=== PATIENT | male | born 1975 | race Hispanic/Latino ===

== ENCOUNTER → 2025-07-12 | Outpatient (CLI) | payer OTHER ==
--- NOTE | 2025-07-13 10:53 | HMCIMG ---
EXAM: CT Cardiac calcium scoring. CLINICAL HISTORY: CAD screening. TECHNIQUE: Thin collimated axial CT cardiac images were obtained. A CT scan is done according to ALARA (As Low As Reasonably Achievable). CONTRAST: None. COMPARISON: None provided. FINDINGS: Calcium Score: VESSEL Number of lesions Volume mm3 Equi. Mass/mg Calcium score LM 0 00.00 00.00 00.00 LAD 3 31.1 --.-- 45.7 LCX 0 00.00 00.00 00.00 RCA 0 00.00 00.00 00.00 Total 3 31.1 --.-- 45.7 IMPRESSION: The calcium score is 45.7. This places the patient above 50th percentile in comparison to a group of patients asymptomatic for coronary artery disease with the same age and gender. This means that >50% of males aged 50-54 have a calcium score that is lower than the patient's. /Tarpley
== END | disposition home or self-care (01) ==
LOC: RAH 13:02
PROVIDERS: ATTEND Internal Medicine
DX: Z13.6 Encounter for screening for cardiovascular disorders (principal); E78.5 Hyperlipidemia, unspecified; I25.10 Atherosclerotic heart disease of native coronary artery without angina pectoris
CPT/HCPCS: 75571